=== PATIENT | male | born 1945 | race Caucasian/White ===

== ENCOUNTER 2016-10-30 05:38 | Day surgery (SDC) | payer MEDICARE, OTHER ==
[2016-10-29 09:18] VITALS: BMI 29.2
--- NOTE | 2016-10-29 10:29 | PREOPHP ---
DATE OF ADMISSION: 10/30/2016 HISTORY OF PRESENT ILLNESS: This 71-year-old patient is admitted for elective cataract surgery of t he left eye. The patient previously had cataract surgery performed on the right eye 3 years ago wit h good visual result. The patient denies other history of eye disease or injury. The patient's sys temic history is positive for insulin-dependent diabetes mellitus, hypertension and benign prostatic hypertrophy. CURRENT MEDICATIONS: Include: 1. Insulin. 2. Metformin. 3. Amlodipine. 4. Flomax. ALLERGIES: THERE ARE NO KNOWN ALLERGIES. PHYSICAL EXAMINATION: Visual acuity with best correction is 20/30 in the right eye and 20/50 in the left eye. 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 There is a posterior chamber intraocular lens in appropriate position in the right eye and a nuclear sclerotic cataract in the left eye. Applanation tonometry is 18 mmHg. Examination of the retina is within no rmal limits with no evidence of diabetic retinopathy in the left eye. DIAGNOSIS: Cataract, left eye. PLAN: Cataract extraction with lens implant, left eye. The risks and alternatives to the surgery a s well as the hope for improvement of visual acuity will lead to a greater ability to perform activi ties of daily living. The patient understands this and agrees to proceed with surgery. Dictated By: JANETTE MALDONADO/RENEA Conf#: [id number] DID#: [id number]
[~2016-10-30] VITALS: Ht 167.6 cm; Wt 70.0 kg
[2016-10-30] VITALS (9 sets, daily range): BP systolic 141–167; BP diastolic 60–74; PULSE 67–80; RESP 17–22; Ht 167.6 cm; Wt 70.0 kg
[2016-10-30] MEDS ORDERED: TROPICAMIDE 1% 2 ML OPH OPER SCH (06:00)
[2016-10-30] MEDS ORDERED: CIPROFLOXACIN 0.3% 2.5 ML OPH OPER SCH (06:00)
[2016-10-30] MEDS ORDERED: DICLOFENAC 0.1% 2.5 ML OPH OPER SCH (06:00)
[2016-10-30] MEDS ORDERED: CYCLOPENTOLATE/PHENYLEPH 2 ML OPH OPER SCH (06:00)
[2016-10-30] MEDS ORDERED: FINA5TAB4 PO (07:19)
[2016-10-30] MEDS ORDERED: NPH,100V SQ (07:21)
[2016-10-30] MEDS ORDERED: TAMS-14 PO (07:22)
[2016-10-30] MEDS ORDERED: METF1000 PO (07:22)
[2016-10-30] MEDS ORDERED: LOSA100T7 PO (07:22)
[2016-10-30] MEDS ORDERED: AMLO-218 PO (07:23)
[2016-10-30] MEDS ORDERED: ATOR40TA68 PO (07:23)
[2016-10-30] MEDS ORDERED: LIDOCAINE 100 MG SYRINGE ONE (07:44)
[2016-10-30] MEDS ORDERED: PROPOFOL 20 ML ONE (07:44)
[2016-10-30] MEDS ORDERED: morphine (1 MG/ML) 10ML SYRINGE IV PRN ×3 (08:00)
[2016-10-30] MEDS ORDERED: MIDAZOLAM 1 MG/ML 2 ML INJ IV PRN (08:00)
[2016-10-30] MEDS ORDERED: FENTAnyl 50 MCG/ML VIAL IV PRN ×2 (08:00)
[2016-10-30] MEDS ORDERED: HYDROmorphONE (0.2 MG/ML) 10ML SYG IV PRN ×3 (08:00)
[2016-10-30] MEDS ORDERED: MEPERIDINE 25 MG INJ IV PRN (08:00)
[2016-10-30] MEDS ORDERED: EPHEDrine SULFATE 50 MG/5 ML SYG IV PRN (08:00)
[2016-10-30] MEDS ORDERED: LABETALOL HCL 20MG INJ IV PRN (08:00)
[2016-10-30] MEDS ORDERED: OXYCODONE/ACETAMINOPHEN (5/325) TAB PO PRN ×2 (08:00)
[2016-10-30] MEDS ORDERED: ONDANSETRON 4 MG INJ IV PRN (08:00)
[2016-10-30] MEDS ORDERED: ATROPINE 1 MG/10 ML SYRINGE IV PRN (08:00)
[2016-10-30] MEDS ORDERED: DIPHENHYDRAMINE 50 MG INJ IV PRN (08:00)
[2016-10-30] MEDS ORDERED: hydrALAzine 20 MG INJ IV PRN (08:00)
[2016-10-30] MEDS ORDERED: LIDOCAINE 4% (MPF) 5 ML INJ ONE (08:04)
[2016-10-30] MEDS ORDERED: HYALURONATE/CHONDROITIN 1ML OPH INJ ONE (08:04)
[2016-10-30] MEDS ORDERED: CARBACHOL 0.01% 1.5 ML OPH INJ ONE (08:04)
[2016-10-30] MEDS ORDERED: DEXAMETHASONE 4 MG/ML 1 ML INJ ONE (08:04)
[2016-10-30] MEDS ORDERED: ONDANSETRON 4 MG INJ ONE (08:28)
[2016-10-30] MEDS ORDERED: MIDAZOLAM 1 MG/ML 2 ML INJ ONE (08:35)
[2016-10-30] MEDS ORDERED: CEFAZOLIN 1 GM INJ INJ ONE (09:17)
[2016-10-30] MEDS ORDERED: NEOSTIGMINE 3 MG/3 ML SYRINGE ONE (09:18)
[2016-10-30] MEDS ORDERED: ROCURONIUM 50 MG INJ ONE (09:18)
[2016-10-30] MEDS ORDERED: FLUMAZENIL 0.5 MG INJ ONE (09:19)
[2016-10-30] MEDS ORDERED: GLYCOPYRROLATE 0.4 MG INJ ONE (09:19)
--- NOTE | 2016-10-30 11:20 | OPR ---
DATE OF OPERATION: 10/30/2016 PREOPERATIVE DIAGNOSIS: Cataract, left eye. POSTOPERATIVE DIAGNOSIS: Cataract, left eye. PROCEDURE PERFORMED: Cataract extraction with lens Implant, left eye. SURGEON: Janette Neumann MD ANESTHESIOLOGIST: Devyn Mancini MD DESCRIPTION OF PROCEDURE: The patient brought to the operating room on an eye gurney, positioned appropriately, attached to electrocardiogram monitoring, given oxygen via nasal cannula. After some intravenous sedation was administered, the patient received local anesthesia using lidocaine 4% in lid block and retrobulbar injection. The patient was then prepped and draped in the usual sterile manner and a speculum was inserted between the lids of the left eye. The patient began moving during the preliminary stages of the surgery and additional intravenous sedation was administered. However, the patient continued to not hold still thereby endangering the procedure. An opening 2 paracentesis incisions had previously been made in the superonasal and superotemporal quadrants through clear cornea and then a 3.0 mm keratome had been used to enter the anterior chamber and stepped corneal incisions at the 12 o'clock position. Because the patient continued to move, it was decided to convert from the anesthesia being used to general anesthesia in order to safely do this. A 10-0 nylon suture was placed across the primary wound and was tied. The patient was then intubated and given general anesthesia. The patient was again prepped and draped and a speculum was inserted between the lids of the left eye. At this point, the suture was cut and removed and DisCoVisc was injected into the anterior chamber. It was noted that the pupil had constricted thereby making access to removal of the cataract difficult. In order to overcome this difficulty, an I-ring was inserted into the anterior chamber and used to retract the pupil creating a 6.5 mm aperture. Following this, an anterior capsulotomy was performed. Hydrodissection of the lens nucleus and then phacoemulsification of the lens was done. When this was completed, epinuclear and cortical material was removed from the posterior chamber. Following this, a 21.0 diopter posterior chamber intraocular lens ( [employer]ch [employer] Lomb model LI61AO) was inserted into the posterior chamber with the haptics placed within the capsular fold. The I-ring was then removed from the eye and one 10-0 nylon suture was placed across the wound. DisCoVisc was evacuated from the anterior chamber and Miostat was instilled to constrict the pupil. The suture was then tied. The ends were cut short and the knot was buried in corneal stroma. The speculum was then removed and then 0.5 mL of Ancef and 0.5 mL of dexamethasone were injected into the sub-Tenon space inferiorly. Vigamox drops were placed on the surface of the eye and the eye was patched. The patient then left the operating room in satisfactory condition. Dictated By: JANETTE MALDONADO/RENEA Conf#: [id number] DID#: [id number] MTDD
== END 2016-10-30 11:05 | disposition home or self-care (01) ==
LOC: SDS 05:38 → GIL 05:44 → SDS 11:05
PROVIDERS: ATTEND Ophthalmology
DX: H25.12 Age-related nuclear cataract, left eye (principal); E11.9 Type 2 diabetes mellitus without complications; I10 Essential (primary) hypertension; I25.10 Atherosclerotic heart disease of native coronary artery without angina pectoris
CPT/HCPCS: 66984; 82962; J0360; J0690; J1100; J2001; J2250; J2405; J2710; V2632

== ENCOUNTER → 2017-03-27 | Outpatient (CLI) | payer MEDICARE, OTHER ==
[~2017-03-27] MED LIST: AMLO-218 PO; APRACLONIDINE 1% 0.1 ML OPH ONE; ATOR40TA68 PO; FINA5TAB4 PO; LOSA100T7 PO; METF1000 PO; NPH,100V SQ; PHENYLephrine 10% 5 ML OPH ONE; PROPARACAINE 0.5% 15 ML OPH ONE; TAMS-14 PO; TROPICAMIDE 1% 3 ML OPH ONE
== END | disposition home or self-care (01) ==
LOC: RAD 09:25
PROVIDERS: ATTEND Ophthalmology
DX: H26.40 Unspecified secondary cataract (principal)
CPT/HCPCS: 66821

== ENCOUNTER 2019-04-22 07:01 | Day surgery (SDC) | payer MEDICARE, OTHER ==
[~2019-04-22] VITALS: Ht 165.1 cm; Wt 77.9 kg
[2019-04-22] VITALS (20 sets, daily range): BP systolic 118–150; BP diastolic 59–85; PULSE 60–74; RESP 14–22; Ht 165.1 cm; Wt 77.9 kg
[~2019-04-22 07:01] MED LIST changes: -APRACLONIDINE 1% 0.1 ML OPH ONE; +CEFAZOLIN 2 GM/50 ML (PMX) 50 ML IVPB ONE; +CHOL100062 PO; +HYDR-842 ORAL; +LANT3I SC; +LINA5TAB PO; +LOSA100T15 PO; -LOSA100T7 PO; -METF1000 PO; +METF100010 PO; +MULTI PO; +NOVO3I SC; -PHENYLephrine 10% 5 ML OPH ONE; -PROPARACAINE 0.5% 15 ML OPH ONE; -TROPICAMIDE 1% 3 ML OPH ONE
[2019-04-22] MEDS ORDERED: LACTATED RINGER'S 1,000 ML IV SCH (08:00)
[2019-04-22] MEDS ORDERED: SOD CHLORIDE 0.9% 1,000 ML IV SCH (08:30)
--- NOTE | 2019-04-22 09:39 | PREAC ---
Date/Time of Note Date/Time of Note DATE: 04/22/19 TIME: 09:36 Anesthesia Eval and Record Evaluation Time Pre-Procedure Interview DATE: 04/22/19 TIME: 09:36 Age 74 Sex male NPO: 8 hrs Preoperative diagnosis Right Ankle Pain, retained hardware Planned procedure Right Ankle Hardware removal, subtalar fusion Past Medical History Past Medical History: Includes Cardio: HTN, Arrythmia (h/o A. Fib w RVR, cleared by relay shop tester. Echo 2018 shows normal EF, 50%) Endo: Diabetes Renal: CKD Surgery & Anesthesia Issues No known issue Meds Anticoagulation: No Beta Jus within 24 hr: No Reason Beta Jus not given: Pt. not on B-Jus Reported Medications Linagliptin (TRADJENTA) 5 Mg Tablet, 5 MG PO DAILY, TAB 04/22/19 Cholecalciferol* (Vitamin D3*) 1,000 Unit Tablet, 2000 UNIT PO DAILY, TAB 04/22/19 Insulin Glargine* (Lantus*) 100 Unit/Ml Soln, 20 UNIT SC QAM, #1 VIAL 04/22/19 Multivitamins* (Theragran*) 1 Tab Tab, 1 TAB PO DAILY, TAB 04/22/19 Insulin Aspart* (Novolog Insulin Pen*) 100 Unit/Ml Soln, 7 UNITS SC DAILY 04/22/19 Hydroxyzine Hcl* (Atarax*) 25 Mg Tab, 1 TAB ORAL TID PRN for ANXIETY 04/22/19 Amlodipine Besylate* (Norvasc*) 10 Mg Tablet, 10 MG PO DAILY, TAB 10/30/16 Atorvastatin* (Atorvastatin*) 40 Mg Tablet, 40 MG PO QHS, #30 TAB 10/30/16 Losartan Potassium* (Losartan Potassium*) 100 Mg Tablet, 100 MG PO DAILY, TAB 10/30/16 Metformin Hcl* (Metformin Hcl*) 1,000 Mg Tablet, 1000 MG PO WITH BREAKFAST DINNE, #30 TAB 10/30/16 Tamsulosin Hcl* (Flomax*) 0.4 Mg Cap.er.24h, 0.4 MG PO DAILY, CAP 10/30/16 Finasteride* (Finasteride*) 5 Mg Tablet, 5 MG PO DAILY, TAB 10/30/16 Discontinued Reported Medications Insulin NPH Human Isophane (Humulin N) 100 Unit/1 Ml Vial, 25 UNIT SQ BID WITH MEALS, VIAL BEFORE BREAKFAST AND DINNER 10/30/16 Current Medications Sodium Chloride 1,000 ml @ 30 mls/hr Q24H IV Last administered on 04/22/19at 08:23; Admin Dose 30 MLS/HR; Start 04/22/19 at 08:30 Meds reviewed: Yes Allergies Coded Allergies: No Known Allergy (Unverified , 04/22/19) Allergies Reviewed: Yes Labs/Studies Labs Reviewed: Reviewed by anesthesiologist (BS 135) test: N/A Pre-procedure Exam Last vitals Vital Signs Date Temp Pulse Resp B/P (MAP) Pulse Ox O2 O2 Flow FiO2 Time Delivery Rate 04/22/19 97.6 60 16 148/66 97 08:14 (93) Airway: Adequate mouth opening Mallampati: Mallampati II Teeth: Normal Lung: Normal Heart: Normal ASA Physical Status ASA physical status: 3 Emergency: None Planned Anesthetic General/MAC: LMA Nerve block: Femoral (right), Sciatic (right) Pre-operative Attestations Prior to commencing anesthesia and surgery, the patient was re-evaluated, there was verification of: *The patient's identity *The results of appropriate recent lab work and preoperative vital signs *The above evaluation not changing prior to induction *Anesthetic plan, risk benefits, alternative and complications discussed with patient/family; questions answered; patient/family understands, accepts and wishes to proceed. YUMIKO BEST MD Apr 22, 2019 09:39
[2019-04-22] MEDS ORDERED: CEFAZOLIN 1 GM INJ ONE ×2 (09:40→11:12)
[2019-04-22] MEDS ORDERED: LIDOCAINE 100 MG SYRINGE ONE (09:40)
[2019-04-22] MEDS ORDERED: PHENYLephrine (100 MCG/ML) 5ML SYG ONE (09:40)
[2019-04-22] MEDS ORDERED: PROPOFOL 20 ML ONE (09:40)
--- NOTE | 2019-04-22 09:40 | HPN ---
Date/Time of Note Date/Time of Note DATE: 04/22/19 TIME: 09:40 Interval H&P Admission Note Pt. seen H&P reviewed: No system changes JOSE ANN DPM Apr 22, 2019 09:40
[2019-04-22] MEDS ORDERED: MIDAZOLAM 1 MG/ML 2 ML INJ ONE (09:41)
[2019-04-22] MEDS ORDERED: ROPIVACAINE 0.5 % 30 ML VIAL ONE (09:41)
[2019-04-22] MEDS ORDERED: FENTAnyl 50 MCG/ML VIAL ONE (09:41)
[2019-04-22] MEDS ORDERED: DEXAMETHASONE 4 MG/ML 5 ML INJ ONE (09:42)
[2019-04-22] MEDS ORDERED: ONDANSETRON 4 MG INJ ONE (09:42)
[2019-04-22] MEDS ORDERED: ROPIVACAINE 0.2% 20 ML VIAL ONE (10:04)
[2019-04-22] MEDS ORDERED: POLYMYXIN/BACITRACIN 1L IRRIG IRR ONE (10:25)
[2019-04-22] MEDS ORDERED: EPHEDrine 25 MG/5 ML SYG ONE (10:54)
[2019-04-22] MEDS ORDERED: ONDANSETRON 4 MG INJ IV PRN (11:00)
[2019-04-22] MEDS ORDERED: hydrALAzine 20 MG INJ IV PRN (11:00)
[2019-04-22] MEDS ORDERED: KETOROLAC 30 MG INJ IV PRN (11:00)
[2019-04-22] MEDS ORDERED: HYDROmorphONE 1 MG/5 ML IV SYRINGE IV PRN ×2 (11:00)
--- NOTE | 2019-04-22 12:08 | OPR ---
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 Painful hardware right foot Right foot pain Diabetes mellitus Peripheral neuropathy Operation/Procedure Performed Removal of painful hardware right foot Subtalar joint arthrodesis Application of bone graft Intraoperative use and interpretation of fluoroscopy Application of posterior splint right lower extremity Surgeon see signature line Human Relations Teacher None Anesthesia Type: general Estimated Blood Loss: minimal Transfusion none Specimen None Grafts/Implants none Complications none Pt Condition Post Procedure: stable Disposition: PACU Indications This is a pleasant 84-year-old diabetic patient who has been suffering with chronic pain of the right foot secondary to posttraumatic subtalar joint arthritis and painful hardware from previous calcaneal fracture; patient is status post ORIF calcaneal fracture. Patient was evaluated and was found to have significant arthritis of the subtalar joint with painful hardware. Patient has failed the following treatments: Activity modification, shoe modification, pain medication, NSAIDs etc. Patient seeks surgical management. Recommended procedure: Hardware removal right foot followed by subtalar joint arthrodesis. Risks and complications of this type of surgery was discussed with patient in great detail. Risks and complications discussed included, but are not limited to, postoperative infection, postoperative pain, hardware failure, malunion, nonunion, delayed union, failure of surgery to correct the problem, need for additional surgical procedures, deep venous thrombosis, limb loss and loss of life. Patient understands the discussion and agrees to the procedure. An informed consent was signed, obtained and placed in the chart. No guarantees or warrantees was given or implied as to the outcome of the procedure either in verbal or written form. Procedure Description The patient was seen in the preoperative unit. The proposed surgery was discussed with patient in great detail. Risks and complications of this type of surgery was discussed with patient in great detail. Opportunity was given to patient to ask questions and all questions were answered. The patient acknowledges understanding of the discussion. An informed consent was then obtained, signed and placed in the chart. Patient was taken to the operating room and was placed on the operating table in the supine position. All bony prominences were padded properly. A timeout was called by the circulating nurse. Everyone in the operating room was agreeable to the timeout. The patient was then placed under general anesthesia by the anesthesiologist. A pneumatic thigh tourniquet was applied to the right lower extremity. The right lower extremity was scrubbed, prepped, and draped in the usual aseptic manner. An Esmarch bandage was utilized to exsanguinate the right lower extremity and the tourniquet was inflated to 300 mmHg pressure. Procedure: #1: Hardware removal right foot Attention was directed to the lateral aspect of the right heel. An inverted L- type incision was made along the previous incision that was there using a #10 blade. Dissection was deepened through the subcutaneous layer all the way down to the periosteal layer using sharp and blunt dissection with care being taken to identify and protect vital neurovascular structures. A dorsal flap was made encompassing the neurovascular bundle along with the peroneal tendons. Dissection continued to reveal the hardware that was present on the lateral aspect of the calcaneus along with the subtalar joint. The hardware was removed using intraoperative fluoroscopic guidance. Once all the hardware was removed, the next step in the procedure was continued which was subtalar joint fusion. The wound was flushed with copious muscle sterile normal saline. Procedure #2: Subtalar joint fusion right foot Next, the subtalar joint was identified and using osteotomes and mallets along with curette, the joint surface was prepared for fusion on both the calcaneus and talus side. Once the joint surface was prepared and drill holes were made using a 2.0 drill, the wound was flushed with copious muscle sterile normal saline. Using intraoperative fluoroscopy for guidance, I went and 9 inserted to 7.0 cannulated headless screws in a crisscross fashion across the subtalar joint for fusion. DBM bone graft was added. At this point, the dorsal flap was reapproximated down using 3-0 Vicryl suture and the skin was closed using 4-0 Monocryl in simple suture technique. Postoperative injection was given with 20 cc of Marcaine plain around the right ankle joint. Sterile dressing was applied to the right ankle. The tourniquet was deflated at this time and prompt hyperemic response was noted to digits of the right foot. Posterior splint was applied to the right lower extremity. The patient tolerated procedure and anesthesia well. The patient was transferred to the recovery room with vital signs stable and vascular status intact to right lower extremity. The patient will be discharged home after postoperative monitoring. Postoperative orders were written. Patient will be followed up in the office in 1 week. JOSE ANN DPM Apr 22, 2019 12:08
--- NOTE | 2019-04-22 13:00 | PAC ---
Date/Time of Note Date/Time of Note DATE: 04/22/19 TIME: 13:00 Post-Anesthesia Notes Post-Anesthesia Note Last documented vital signs Vital Signs Date Temp Pulse Resp B/P (MAP) Pulse Ox O2 O2 Flow FiO2 Time Delivery Rate 04/22/19 70 20 145/69 98 Mask 12:21 (94) 04/22/19 98.2 12:01 Activity: WNL Respiratory function: WNL Cardiovascular function: WNL Mental status: Baseline Pain reasonably controlled: Yes Hydration appropriate: Yes Nausea/Vomiting absent: Yes YUMIKO BEST MD Apr 22, 2019 13:00
== END 2019-04-22 14:36 | disposition home or self-care (01) ==
LOC: SDS 07:01
PROVIDERS: ATTEND Podiatrist Foot & Ankle Surgery
DX: T84.84XD Pain due to internal orthopedic prosthetic devices, implants and grafts, subsequent encounter (principal); M79.671 Pain in right foot; Y79.3 Surgical instruments, materials and orthopedic devices (including sutures) associated with adverse incidents; Y83.8 Other surgical procedures as the cause of abnormal reaction of the patient, or of later complication, without mention of misadventure at the time of the procedure; E11.42 Type 2 diabetes mellitus with diabetic polyneuropathy; Z79.4 Long term (current) use of insulin; Z79.84 Long term (current) use of oral hypoglycemic drugs; I48.91 Unspecified atrial fibrillation; I12.9 Hypertensive chronic kidney disease with stage 1 through stage 4 chronic kidney disease, or unspecified chronic kidney disease; N18.9 Chronic kidney disease, unspecified
CPT/HCPCS: 28725; 73630; 82962; 88300; J0690; J1100; J2001; J2250; J2370; J2405; J2795; J3010